=== PATIENT | male | born 1935 | race American Indian/Alaskan Native ===

== ENCOUNTER 2017-08-04 20:38 | Emergency (ER) | payer MEDICARE, OTHER ==
[2017-08-04 21:05] VITALS: BP 123/70
[2017-08-04] MEDS ORDERED: ASPIRIN PO ONE (21:05)
[2017-08-04 21:20] LABS: Basophils % (Auto) 0.1 % (0.0-1.8); Eosinophils % (Auto) 0.4 % (0.0-4.3); Hematocrit 37.7 % (35.5-45.6); Lymphocytes # (Auto) 0.6 K/mm3 (1.2-5.4); Lymphocytes % (Auto) 8.2 % (13.4-35.0); Mean Corpuscular HGB Conc 35 % (32-34); Mean Corpuscular Hemoglobin 31 pg (28-32); Mean Corpuscular Volume 91 fl (84-94); Monocytes # (Auto) 0.6 K/mm3 (0.0-0.8); Monocytes % (Auto) 8.4 % (0.0-7.3); Platelet Count 160 K/mm3 (140-440); Red Blood Count 4.14 M/mm3 (3.65-5.03); Red Cell Distribution Width 14.6 % (13.2-15.2)
[2017-08-04 21:32] LABS: BUN/Creatinine Ratio 15; Blood Urea Nitrogen 19 mg/dL (9-20); Calcium 8.6 mg/dL (8.4-10.2); Hemolysis Index 4
--- NOTE | 2017-08-04 22:14 | Emergency Department Report ---
ED Fall HPI - General Chief Complaint: Fall Stated Complaint: FALL/CP Time Seen by Provider: 08/04/17 21:22 Source: patient, EMS Mode of arrival: Stretcher - History of Present Illness Initial Comments: pt. was just discharged yesterday from [facility] for bradycardia and is here after falling in the garage where he tripped, he also fell earlier today even though he had been advised to take it easy after discharge. he is presently complaining of pain in the right groin of mild to moderate intensity, no pain elsewhere . MD Complaint: fall -: Sudden Fall From: standing When Fall Occurred: just prior to arrival Fall Witnessed: no Place Fall Occurred: home Prolonged Down Time?: no Symptoms Prior to Fall: none Location: other (right groin) Location - Extremities: Right: Thigh (groin) Severity: moderate Quality: aching Context: tripped/slipped Associated Symptoms: denies - Related Data Allergies Allergy/AdvReac Type Severity Reaction Status Date / Time No Known Allergies Allergy Verified 08/04/17 21:25 ED Review of Systems ROS: Stated complaint: FALL/CP Other details as noted in HPI Comment: All other systems reviewed and negative ED Past Medical Hx - Past Medical History Previous Medical History?: Yes Hx Hypertension: Yes Hx of Cancer: Yes Additional medical history: colon and prostate CA. - Surgical History Past Surgical History?: Yes Additional Surgical History: colon surgery and seeds in prostate. - Social History Smoking Status: Former Smoker Substance Use Type: None ED Physical Exam - General Limitations: No Limitations General appearance: alert, in no apparent distress - Head Head exam: Present: atraumatic, normocephalic - Eye Eye exam: Present: normal appearance - ENT ENT exam: Present: mucous membranes moist - Neck Neck exam: Present: normal inspection - Respiratory Respiratory exam: Present: normal lung sounds bilaterally. Absent: respiratory distress - Cardiovascular Cardiovascular Exam: Present: regular rate. Absent: normal rhythm (irreg,irreg) , systolic murmur, diastolic murmur, rubs, gallop - GI/Abdominal GI/Abdominal exam: Present: soft, normal bowel sounds. Absent: tenderness - Rectal Rectal exam: Present: deferred - Extremities Exam Extremities exam: Present: normal inspection, full ROM, tenderness (ttp og the right groin. no hernia) - Back Exam Back exam: Present: normal inspection. Absent: tenderness - Neurological Exam Neurological exam: Present: alert, oriented X3 - Psychiatric Psychiatric exam: Present: normal affect, normal mood - Skin Skin exam: Present: warm, dry, intact, normal color. Absent: rash ED Course Vital Signs 08/04/17 20:56 Temperature 100.2 F H Pulse Rate 76 Respiratory 18 Rate Blood Pressure 123/70 Blood Pressure 123/70 [Right] O2 Sat by Pulse 96 Oximetry ED Medical Decision Making - Lab Data Result diagrams: 08/04/17 21:10 08/04/17 21:10 - EKG Data -: EKG Interpreted by Me ( at rate of 71. multiple pvc's.LBBB) EKG shows normal: sinus rhythm (RATE OF 71. VARYING ND INTERVAL) - Radiology Data Radiology results: image reviewed - Medical Decision Making pt. says he does not have any urinary complains and says he as a follow up with his PCP on monday and will like to go home Critical care attestation.: If time is entered above; I have spent that time in minutes in the direct care of this critically ill patient, excluding procedure time. ED Disposition Clinical Impression: Fall, Groin strain Disposition: DC-01 TO HOME OR SELFCARE Is pt being admited?: No Does the pt Need Aspirin: No Condition: Stable Instructions: Muscle Strain (ED) Additional Instructions: take tylenol as needed. avoid overexerting yourself. Referrals: JOSE MIGUEL CHANDLER MD [Primary Care Provider] - 3-5 Days Time of Disposition: 22:15 Print Language: GIBRALTARIAN
--- NOTE | 2017-08-05 01:27 | XRay Report ---
FINAL REPORT PROCEDURE: XR HIP 2-3V RT TECHNIQUE: RIGHT hip radiographs, 2 views each, including AP view of the pelvis. HISTORY: Hip pain. COMPARISON: No prior studies are available for comparison. FINDINGS: Fracture (s) and/or Dislocation(s): None . Joint space(s): Osteophytes and mild narrowing in the lumbosacral spine. Near complete fusion of the superior sacroiliac joints. Mild narrowing of the symphysis. Mild narrowing and osteophytes of the hip joints. Soft tissues: Prostate radiation seeds. Bone mineralization: Mild osteopenia possible subtle area of sclerosis in the right sacrum. Foreign bodies: None. IMPRESSION: Mild osteopenia and degenerative change. Possible subtle area of sclerosis in the sacrum, although could be overlying structures. Consider bone scan or MRI if there is continued clinical concern for underlying neoplastic/metastatic process or posttraumatic change (if patient has no contraindication to MRI).
== END 2017-08-05 01:01 | disposition home or self-care (01) ==
LOC: ED 20:38
DX: S39.011A Strain of muscle, fascia and tendon of abdomen, initial encounter (principal); I10 Essential (primary) hypertension; Z87.891 Personal history of nicotine dependence; W01.0XXA Fall on same level from slipping, tripping and stumbling without subsequent striking against object, initial encounter; Y93.89 Activity, other specified; Y92.59 Other trade areas as the place of occurrence of the external cause; Y99.8 Other external cause status
CPT/HCPCS: 36415; 80048; 84484; 85025; 93005; 93010; 99284

== ENCOUNTER 2019-09-27 08:33 | Emergency (ER) | payer MEDICARE, OTHER ==
[2019-09-27 11:24] LABS: Basophils % (Auto) 0.7 % (0.0-1.8); Eosinophils # (Auto) 0.1 K/mm3 (0.0-0.4); Eosinophils % (Auto) 1.3 % (0.0-4.3); Hematocrit 38.6 % (35.5-45.6); Hemoglobin 12.6 gm/dl (11.8-15.2); Lymphocytes # (Auto) 0.9 K/mm3 (1.2-5.4); Lymphocytes % (Auto) 20.9 % (13.4-35.0); Mean Corpuscular HGB Conc 33 % (32-34); Mean Corpuscular Volume 93 fl (84-94); Monocytes # (Auto) 0.4 K/mm3 (0.0-0.8); Monocytes % (Auto) 7.9 % (0.0-7.3); Platelet Count 202 K/mm3 (140-440); Red Blood Count 4.16 M/mm3 (3.65-5.03)
[2019-09-27 11:34] LABS: INR 1.17 (0.87-1.13); Partial Thromboplastin Time 30.1 Sec. (24.2-36.6)
[2019-09-27 11:50] LABS: Alanine Aminotransferase 17 units/L (7-56); BUN/Creatinine Ratio 20; Bilirubin,Direct 0.2 mg/dL (0-0.2); Blood Urea Nitrogen 16 mg/dL (9-20); Calcium 9.1 mg/dL (8.4-10.2); Hemolysis Index 6
[2019-09-27] MEDS ORDERED: SODIUM CHLORIDE 0.9% 1000 ML 1,000 ML IV ONE (11:51)
--- NOTE | 2019-09-27 11:58 | Emergency Department Report ---
ED General Adult HPI - General Chief complaint: Weakness Stated complaint: WEAKNESS Time Seen by Provider: 09/27/19 10:23 Source: patient, EMS Mode of arrival: Stretcher Limitations: No Limitations - History of Present Illness Initial comments: 84-year-old man states that last night he felt like he room was spinning. He did not pass out. Does not complain of headache. He states he feels somewhat weak today and was transported for evaluation. He has chronic problems with stiffness in his ankles which he mentions. He states that his niece "checks on" him. He states he was discharged from the [facility] less than a week ago after a 5-day admission. He does not know what he was admitted for. He is coherent and knows he is in [facility]. However, he is not a very good source of information. Review of prior records here which are really quite limited indicate that he had an admission to [facility] for bradycardia 2 years ago. -: Gradual Radiation: other (No pain complaint) - Related Data Allergies Allergy/AdvReac Type Severity Reaction Status Date / Time No Known Allergies Allergy Verified 08/04/17 21:25 ED Review of Systems ROS: Stated complaint: WEAKNESS Other details as noted in HPI Constitutional: weakness. denies: chills, fever Eyes: denies: eye pain, eye discharge, vision change ENT: denies: ear pain, throat pain Respiratory: denies: cough, shortness of breath, wheezing Cardiovascular: denies: chest pain, palpitations Endocrine: no symptoms reported Gastrointestinal: denies: abdominal pain, nausea, diarrhea Genitourinary: denies: urgency, dysuria Musculoskeletal: arthralgia. denies: back pain, joint swelling Skin: denies: rash, lesions Neurological: vertigo. denies: headache, weakness, numbness, paresthesias, confusion Psychiatric: denies: anxiety, depression Hematological/Lymphatic: denies: easy bleeding, easy bruising ED Past Medical Hx - Past Medical History Previous Medical History?: Yes Hx Hypertension: Yes Hx of Cancer: Yes Additional medical history: colon and prostate CA. - Surgical History Past Surgical History?: Yes Additional Surgical History: colon surgery and seeds in prostate. - Social History Smoking Status: Never Smoker Substance Use Type: None ED Physical Exam - General Limitations: No Limitations General appearance: alert, in no apparent distress - Head Head exam: Present: atraumatic, normocephalic - Eye Eye exam: Present: normal appearance. Absent: scleral icterus - ENT ENT exam: Present: mucous membranes moist - Neck Neck exam: Present: normal inspection - Respiratory Respiratory exam: Present: normal lung sounds bilaterally. Absent: respiratory distress - Cardiovascular Cardiovascular Exam: Present: regular rate, normal rhythm. Absent: systolic murmur, diastolic murmur, rubs, gallop - GI/Abdominal GI/Abdominal exam: Present: soft, normal bowel sounds. Absent: distended, tenderness, guarding, rebound, rigid - Rectal Rectal exam: Present: deferred - Extremities Exam Extremities exam: Present: normal inspection, other (No obvious active joints). Absent: calf tenderness - Neurological Exam Neurological exam: Present: alert, oriented X3, CN II-XII intact. Absent: motor sensory deficit - Psychiatric Psychiatric exam: Present: normal affect, normal mood - Skin Skin exam: Present: warm, dry, intact, normal color. Absent: rash ED Course Vital Signs 09/27/19 09/27/19 09/27/19 08:40 08:45 09:00 Temperature 98.4 F Pulse Rate 91 H 87 76 Respiratory 13 16 14 Rate Blood Pressure 155/84 148/81 O2 Sat by Pulse 99 98 Oximetry 09/27/19 09/27/19 09/27/19 09:06 10:00 11:00 Temperature Pulse Rate 81 84 Respiratory 16 16 13 Rate Blood Pressure 148/81 163/92 O2 Sat by Pulse 99 98 98 Oximetry 09/27/19 09/27/19 09/27/19 12:00 13:00 14:00 Temperature Pulse Rate 94 H 86 105 H Respiratory 13 11 L 9 L Rate Blood Pressure 153/88 153/88 171/105 O2 Sat by Pulse 99 99 99 Oximetry - Reevaluation(s) Reevaluation #1: Patient does display signs of dementia. I had case management communicate with the family. [facility]. The niece is in route to bring the patient home. They have verified a safe discharge. 09/27/19 14:56 ED Medical Decision Making - Lab Data Result diagrams: 09/27/19 11:02 09/27/19 11:02 Laboratory Results - last 24 hr 09/27/19 09/27/19 09/27/19 11:02 11:02 11:02 WBC 4.5 RBC 4.16 Hgb 12.6 Hct 38.6 MCV 93 MCH 30 MCHC 33 RDW 14.0 Plt Count 202 Lymph % (Auto) 20.9 Newton % (Auto) 7.9 H Eos % (Auto) 1.3 Baso % (Auto) 0.7 Lymph # 0.9 L Newton # 0.4 Eos # 0.1 Baso # 0.0 Seg Neutrophils % 69.2 Seg Neutrophils # 3.1 PT 14.7 INR 1.17 H APTT 30.1 Sodium 146 H Potassium 3.9 Chloride 106.8 Carbon Dioxide 27 Anion Gap 16 BUN 16 Creatinine 0.8 Estimated GFR > 60 BUN/Creatinine Ratio 20 Glucose 92 Calcium 9.1 Magnesium 2.10 Total Bilirubin 0.90 Direct Bilirubin 0.2 Indirect Bilirubin 0.7 AST 23 ALT 17 Alkaline Phosphatase 51 Troponin T 0.011 Total Protein 6.4 Albumin 4.0 Albumin/Globulin Ratio 1.7 Laboratory Results - last 24 hr 09/27/19 09/27/19 09/27/19 11:02 11:02 11:02 WBC 4.5 RBC 4.16 Hgb 12.6 Hct 38.6 MCV 93 MCH 30 MCHC 33 RDW 14.0 Plt Count 202 Lymph % (Auto) 20.9 Newton % (Auto) 7.9 H Eos % (Auto) 1.3 Baso % (Auto) 0.7 Lymph # 0.9 L Newton # 0.4 Eos # 0.1 Baso # 0.0 Seg Neutrophils % 69.2 Seg Neutrophils # 3.1 PT 14.7 INR 1.17 H APTT 30.1 Sodium 146 H Potassium 3.9 Chloride 106.8 Carbon Dioxide 27 Anion Gap 16 BUN 16 Creatinine 0.8 Estimated GFR > 60 BUN/Creatinine Ratio 20 Glucose 92 Calcium 9.1 Magnesium 2.10 Total Bilirubin 0.90 Direct Bilirubin 0.2 Indirect Bilirubin 0.7 AST 23 ALT 17 Alkaline Phosphatase 51 Total Creatine Kinase 141 Troponin T 0.011 Total Protein 6.4 Albumin 4.0 Albumin/Globulin Ratio 1.7 TSH 09/27/19 11:02 WBC RBC Hgb Hct MCV MCH MCHC RDW Plt Count Lymph % (Auto) Newton % (Auto) Eos % (Auto) Baso % (Auto) Lymph # Newton # Eos # Baso # Seg Neutrophils % Seg Neutrophils # PT INR APTT Sodium Potassium Chloride Carbon Dioxide Anion Gap BUN Creatinine Estimated GFR BUN/Creatinine Ratio Glucose Calcium Magnesium Total Bilirubin Direct Bilirubin Indirect Bilirubin AST ALT Alkaline Phosphatase Total Creatine Kinase Troponin T Total Protein Albumin Albumin/Globulin Ratio TSH 1.160 - EKG Data -: EKG Interpreted by Me EKG shows normal: sinus rhythm Rate: normal - EKG Data Interpretation: no acute changes, other (Left bundle branch block) - Radiology Data interpreted by me: CT head no acute process Critical care attestation.: If time is entered above; I have spent that time in minutes in the direct care of this critically ill patient, excluding procedure time. ED Disposition Clinical Impression: Weakness generalized Dementia Qualifiers: Dementia type: unspecified type Dementia behavioral disturbance: without behavioral disturbance Qualified Code(s): F03.90 - Unspecified dementia without behavioral disturbance Disposition: DC-01 TO HOME OR SELFCARE Is pt being admited?: No Does the pt Need Aspirin: No Condition: Stable Instructions: Dementia (ED), Weakness (ED) Additional Instructions: [facility] care with [facility]. Return any acute change or problem as occurs. Referrals: PRIMARY CARE, [Primary Care Provider] - 3-5 Days Time of Disposition: 14:57
--- NOTE | 2019-09-27 12:40 | Cat Scan Report ---
CT head/brain wo con INDICATION / CLINICAL INFORMATION: 84 years Male; vertigo. TECHNIQUE: Routine CT head without contrast. All CT scans at this location are performed using CT dos e reduction for ALARA by means of automated exposure control. COMPARISON: None. FINDINGS: BRAIN / INTRACRANIAL CONTENTS: There is mild cerebral and pontine white matter disease most consisten t with microvascular angiopathy. There are small lacunar infarcts involving the thalami which appear chronic though correlation would be needed. There is mild cerebral atrophy. The ventricular system is correspondingly appropriate in size and configuration. There are small foci of calcification within the basal ganglia. However, there is no CT evidence of a cute intracranial hemorrhage or significant mass effect. ORBITS: No significant abnormality of visualized orbits. SINUSES / MASTOIDS: There is notable opacification of the visualized maxillary sinuses. CRANIOCERVICAL JUNCTION: No significant abnormality. ADDITIONAL FINDINGS: None. IMPRESSION: 1. 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 Signer Name: Sidney Angela MD Signed: 09/27/2019 12:36 PM Workstation Name: [id number]
[2019-09-27 14:19] VITALS: BP 171/105
--- NOTE | 2019-09-27 14:45 | XRay Report ---
CHEST 1 VIEW INDICATION: hypertension. COMPARISON: FINDINGS: SUPPORT DEVICES: None. HEART / MEDIASTINUM: No significant abnormality. LUNGS / PLEURA: No significant pulmonary or pleural abnormality. No pneumothorax. ADDITIONAL FINDINGS: IMPRESSION: 1. No acute cardiopulmonary disease Signer Name: Edin Castaneda MD Signed: 09/27/2019 2:40 PM Workstation Name: [id number]
[2019-09-27 14:46] LABS: Bilirubin,Urine NEG (Negative); Blood,Urine NEG (Negative); Color,Urine Yellow (Yellow); Mucus,Urine FEW /HPF; Protein,Urine <15 mg/dL mg/dL (Negative)
== END 2019-09-27 15:29 | disposition home or self-care (01) ==
LOC: ED 08:33
DX: F03.90 Unspecified dementia, unspecified severity, without behavioral disturbance, psychotic disturbance, mood disturbance, and anxiety (principal); R53.1 Weakness; I10 Essential (primary) hypertension; Z85.038 Personal history of other malignant neoplasm of large intestine; Z85.46 Personal history of malignant neoplasm of prostate; Z98.890 Other specified postprocedural states
CPT/HCPCS: 36415; 70450; 71045; 80048; 80076; 81001; 82550; 83735; 84443; 84484; 85025; 85610; 85730; 93005; 99285; J7030